=== PATIENT | female | born 1980 | race Caucasian/White ===

== ENCOUNTER 2016-04-28 20:57 | Emergency (ER) | payer OTHER ==
--- NOTE | 2016-04-28 21:51 | ER Document Report ---
ED Medical Screen (RME) - General Chief Complaint: High Blood Pressure Stated Complaint: BLOOD PRESSURE ISSUE W/ Time seen by provider: 21:49 Mode of Arrival: Ambulatory Information source: Patient Notes: 36 yo female presents to ed for elevated bp swollen ankles and pain in the right abdomen. She is 12 weeks . lmp feb 02 TRAVEL OUTSIDE OF THE [place] IN LAST 30 DAYS: No - HPI Onset: Other - couple day for abdominal pain, bp today, ankle swelling couple weeks. Onset/Duration: Gradual Quality of pain: Cramping Severity: Moderate Pain Level: 3 Associated Symptoms: Abdominal pain, Leg swelling, Other - Htn Exacerbated by: Denies Relieved by: Denies Similar symptoms previously: Yes Recently seen / treated by doctor: Yes - Related Data Smoking: Non-smoker Frequency of alcohol use: None Drug Abuse: None Allergies/Adverse Reactions: morphine [Morphine] Adverse Reaction (Verified 04/28/16 21:37) sumatriptan [From Imitrex] Adverse Reaction (Verified 04/28/16 21:37) sumatriptan succinate [From Imitrex] Adverse Reaction (Verified 04/28/16 21:37) Past Medical History - Social History Chew tobacco use (# tins/day): No Frequency of alcohol use: None Drug Abuse: None Neurological Medical History: Reports: Hx Migraine Endocrine Medical History: Reports: Hx Hypothyroidism Renal/ Medical History: Reports: Hx Ovarian Cysts Psychiatric Medical History: Reports: Hx Anxiety, Hx Depression Past Surgical History: Reports: Hx Cholecystectomy, Hx Gynecologic Surgery - R ovarian and fallopian tubes removed - Immunizations Hx Diphtheria, Pertussis, Tetanus Vaccination: Yes Physical Exam - Vital signs Vitals: Temp Pulse Resp BP Pulse Ox 98.5 F 95 20 124/85 100 04/28/16 21:37 04/28/16 21:37 04/28/16 21:37 04/28/16 21:37 04/28/16 21:37 Course - Vital Signs Vital signs: Temp Pulse Resp BP Pulse Ox 98.5 F 95 20 124/85 100 04/28/16 21:37 04/28/16 21:37 04/28/16 21:37 04/28/16 21:37 04/28/16 21:37
[2016-04-28 22:23] LABS: ABSOLUTE BASOPHILS # (AUTO) 0.1 10^3/uL (0.0-0.2); ABSOLUTE EOSINOPHILS # (AUTO) 0.1 10^3/uL (0.0-0.6); ABSOLUTE LYMPHOCYTES (AUTO) 2.3 10^3/uL (0.5-4.7); ABSOLUTE MONOCYTES (AUTO) 0.6 10^3/uL (0.1-1.4); ABSOLUTE NEUT (AUTO) 6.9 10^3/uL (1.7-8.2); BASOPHILS % (AUTO) 0.7 % (0-2); EOSINOPHILS % (AUTO) 0.8 % (0-6); HEMATOCRIT 40.9 % (36.0-47.0); HEMOGLOBIN 13.5 g/dL (12.0-15.5); HGB HCT DIFFERENCE -0.4; LYMPHOCYTES % (AUTO) 23.4 % (13-45); MEAN CORPUSCULAR HEMOGLOBIN 28.7 pg (27.0-33.4); MEAN CORPUSCULAR HGB CONC 33.1 g/dL (32.0-36.0); MEAN CORPUSCULAR VOLUME 87 fl (80-97); MONOCYTES % (AUTO) 5.7 % (3-13); RED BLOOD COUNT 4.72 10^6/uL (3.72-5.28); RED CELL DISTRIBUTION WIDTH 12.4 % (11.5-14.0); SEGMENTED NEUTROPHILS % (AUTO) 69.4 % (42-78)
[2016-04-28 22:24] LABS: APPEARANCE,URINE CLEAR; BILIRUBIN,URINE NEGATIVE (NEGATIVE); GLUCOSE, URINE NEGATIVE (NEGATIVE); KETONES,URINE NEGATIVE (NEGATIVE); LEUKOCYTE ESTERASE,URINE NEGATIVE (NEGATIVE); NITRITE,URINE NEGATIVE (NEGATIVE); PROTEIN,URINE NEGATIVE (NEGATIVE); URINE SPECIFIC GRAVITY 1.006; UROBILINOGEN,URINE NEGATIVE mg/dL (<2.0)
[2016-04-28 22:37] LABS: ALANINE AMINOTRANSFERASE 55 U/L (9-52); ALBUMIN 4.2 g/dL (3.5-5.0); ALKALINE PHOSPHATASE 109 U/L (38-126); ANION GAP 12 (5-19); ASPARTATE AMINO TRANSFERASE 33 U/L (14-36); BILIRUBIN,TOTAL 0.5 mg/dL (0.2-1.3); BLOOD UREA NITROGEN 6 mg/dL (7-20); CALCIUM 9.5 mg/dL (8.4-10.2); CARBON DIOXIDE 22 mmol/L (22-30); CHLORIDE 103 mmol/L (98-107); CREATININE RESULT 0.71 mg/dL (0.52-1.25); GLUCOSE 99 mg/dL (75-110); POTASSIUM 4.5 mmol/L (3.6-5.0); SODIUM 137.4 mmol/L (137-145); TOTAL PROTEIN 7.1 g/dL (6.3-8.2)
--- NOTE | 2016-04-29 02:06 | ER Document Report ---
ED GI/ - General Chief Complaint: High Blood Pressure Stated Complaint: BLOOD PRESSURE ISSUE W/ Mode of Arrival: Ambulatory TRAVEL OUTSIDE OF THE [place] IN LAST 30 DAYS: No - Related Data Allergies/Adverse Reactions: morphine [Morphine] Adverse Reaction (Verified 04/28/16 21:37) sumatriptan [From Imitrex] Adverse Reaction (Verified 04/28/16 21:37) sumatriptan succinate [From Imitrex] Adverse Reaction (Verified 04/28/16 21:37) Past Medical History - General Information source: Patient - Social History Smoking Status: Never Smoker Chew tobacco use (# tins/day): No Frequency of alcohol use: None Drug Abuse: None Family History: Reviewed & Not Pertinent, Other - Mother has kidney stones Patient has suicidal ideation: No Patient has homicidal ideation: No Neurological Medical History: Reports: Hx Migraine Endocrine Medical History: Reports: Hx Hypothyroidism Renal/ Medical History: Reports: Hx Ovarian Cysts Psychiatric Medical History: Reports: Hx Anxiety, Hx Depression Past Surgical History: Reports: Hx Cholecystectomy, Hx Gynecologic Surgery - R ovarian and fallopian tubes removed - Immunizations Hx Diphtheria, Pertussis, Tetanus Vaccination: Yes Physical Exam - Vital signs Vitals: Temp Pulse Resp BP Pulse Ox 98.5 F 95 20 124/85 100 04/28/16 21:37 04/28/16 21:37 04/28/16 21:37 04/28/16 21:37 04/28/16 21:37 Course - Vital Signs Vital signs: Temp Pulse Resp BP Pulse Ox 98.5 F 95 20 124/85 100 04/28/16 21:37 04/28/16 21:37 04/28/16 21:37 04/28/16 21:37 04/28/16 21:37 - Laboratory Result Diagrams: 04/28/16 22:10 04/28/16 22:10 Laboratory results interpreted by me: 04/28/16 22:10 BUN 6 L ALT 55 H Beta HCG, Quant [id number] H Discharge - Discharge Clinical Impression: Condition: Stable Disposition: HOME, SELF-CARE Instructions: ([facility]) Referrals: [facility] [Provider Group] - Follow up as needed
--- NOTE | 2016-04-29 02:19 | ER Document Report ---
ED General - General Mode of Arrival: Ambulatory Information source: Patient TRAVEL OUTSIDE OF THE [place] IN LAST 30 DAYS: No - HPI Onset: Other - see narrative Associated symptoms: Other - see above Similar symptoms previously: No <ROBBIE STONE - Last Filed: 04/29/16 02:49> <EDDI SILVA - Last Filed: 04/29/16 05:23> - General Chief Complaint: High Blood Pressure Stated Complaint: BLOOD PRESSURE ISSUE W/ Notes: Patient is a 36 year old female that presents to the emergency department today with complaints of shortness of breath, a headache, and bilateral leg swelling. Patient states that she is 12 weeks and was told her blood pressure of 126/90 was "too high" and she was sent to the ER. Patient states she has had symmetric bilateral leg swelling with no calf tenderness. Patient denies a personal history or family history of blood clots. (ROBBIE STONE) - Related Data Allergies/Adverse Reactions: morphine [Morphine] Adverse Reaction (Verified 04/28/16 21:37) sumatriptan [From Imitrex] Adverse Reaction (Verified 04/28/16 21:37) sumatriptan succinate [From Imitrex] Adverse Reaction (Verified 04/28/16 21:37) Past Medical History - General Information source: Patient, [facility] Records - Social History Smoking Status: Never Smoker Cigarette use (# per day): No Chew tobacco use (# tins/day): No Frequency of alcohol use: None Drug Abuse: None Lives with: Family Family History: Reviewed & Not Pertinent, Other - Mother has kidney stones Patient has suicidal ideation: No Patient has homicidal ideation: No Neurological Medical History: Reports: Hx Migraine Endocrine Medical History: Reports: Hx Hypothyroidism Renal/ Medical History: Reports: Hx Ovarian Cysts Psychiatric Medical History: Reports: Hx Anxiety, Hx Depression Past Surgical History: Reports: Hx Cholecystectomy, Hx Gynecologic Surgery - R ovarian and fallopian tubes removed - Immunizations Hx Diphtheria, Pertussis, Tetanus Vaccination: Yes <ROBBIE STONE - Last Filed: 04/29/16 02:49> Review of Systems - Review of Systems Constitutional: No symptoms reported EENT: No symptoms reported Cardiovascular: No symptoms reported Respiratory: See HPI, Short of breath Gastrointestinal: No symptoms reported Genitourinary: No symptoms reported Female Genitourinary: See HPI, Musculoskeletal: See HPI, Leg swelling - bilateral Skin: No symptoms reported Hematologic/Lymphatic: No symptoms reported Neurological/Psychological: See HPI, Headaches -: Yes All other systems reviewed and negative <ROBBIE STONE - Last Filed: 04/29/16 02:49> Physical Exam <ROBBIE STONE - Last Filed: 04/29/16 02:49> <EDDI SILVA - Last Filed: 04/29/16 05:23> - Vital signs Vitals: Temp Pulse Resp BP Pulse Ox 98.5 F 95 20 124/85 100 04/28/16 21:37 04/28/16 21:37 04/28/16 21:37 04/28/16 21:37 04/28/16 21:37 (ROBBIE STONE) (EDDI SILVA) - Notes Notes: Physical Exam: General: Alert, appears well. HEENT: Normocephalic. Atraumatic. PERRL. Extraocular movements intact. Oropharynx clear. Neck: Supple. Non-tender. Respiratory: No respiratory distress. Clear and equal breath sounds bilaterally. Cardiovascular: Regular rate and rhythm. Abdominal: Normal Inspection. Non-tender. No distension. Normal Bowel Sounds. Back: Non-tender. No deformity or step off. Extremities: Moves all four extremities. Upper extremities: Normal inspection. Non-tender. Normal color. Normal ROM. Normal temperature. Lower extremities: Trace pedal edema bilaterally, calves are symmetric in size and non-tender. Negative Jackeline's sign. Neurological: Normal cognition. AAOx4. Normal speech. Psychological: Normal affect. Normal Mood. Skin: Warm. Dry. Normal color. (ROBBIE STONE) Course - Laboratory Result Diagrams: 04/28/16 22:10 04/28/16 22:10 <ROBBIE STONE - Last Filed: 04/29/16 02:49> - Laboratory Result Diagrams: 04/28/16 22:10 04/28/16 22:10 - Diagnostic Test Radiology reviewed: Reports reviewed <EDDI SILVA - Last Filed: 04/29/16 05:23> - Re-evaluation Re-evalutation: 04/29/16 Patient is . Otherwise appears well. Trace pitting edema bilateral extremities. Patient has ultrasound shows that she is 12 weeks . Patient gets winded. Discussed d-dimer. We'll drop the patient does not want to wait for results. We'll call if it is positive. Patient has a follow-up with [facility] this week. Only came in because she was told to by urgent care. Stable for discharge. 04/29/16 05:22 D-dimer negative. (EDDI SILVA) - Vital Signs Vital signs: Temp Pulse Resp BP Pulse Ox 98.6 F 82 18 117/41 L 97 04/29/16 02:50 04/29/16 02:50 04/29/16 02:50 04/29/16 02:50 04/29/16 02:50 (ROBBIE STONE) (EDDI SILVA) - Laboratory Laboratory results interpreted by ar: 04/28/16 22:10 BUN 6 L ALT 55 H Beta HCG, Quant [id number] H (ROBBIE STONE) (EDDI SILVA) Discharge <ROBBIE STONE - Last Filed: 04/29/16 02:49> <EDDI SILVA - Last Filed: 04/29/16 05:23> - Discharge Clinical Impression: Qualifiers: Weeks of gestation: 12 weeks Qualified Code(s): Z3A.12 - 12 weeks gestation of Condition: Stable Disposition: HOME, SELF-CARE Instructions: ([facility]) Referrals: [facility] [Provider Group] - Follow up as needed Scribe Attestation: 04/29/16 05:23 I personally performed the services described in the documentation, reviewed and edited the documentation which was dictated to the scribe in my presence, and it accurately records my words and actions. (EDDI SILVA) Scribe Documentation - Scribe Written by Jayshree:: Jayshree Navarro, [id number] 04/29/2016 acting as scribe for :: Laura <ROBBIE STONE - Last Filed: 04/29/16 02:49>
[2016-04-29] MEDS ORDERED: ONDANSETRON ODT 4 MG TAB (6 TAB/DSPK) PO PRN (02:35)
[2016-04-29] MEDS ORDERED: METOCLOPRAMIDE HCL 10 MG TABLET PO ONE (02:35)
[2016-04-29 05:08] VITALS: BP 117/41
== END 2016-04-29 02:50 | disposition home or self-care (01) ==
LOC: ER 20:57
DX: R06.02 Shortness of breath (principal); R51 Headache; M79.89 Other specified soft tissue disorders; O13.1 Gestational [pregnancy-induced] hypertension without significant proteinuria, first trimester; Z3A.12 12 weeks gestation of pregnancy
CPT/HCPCS: 36415; 76801; 80053; 81001; 84702; 85025; 85379; 99284

== ENCOUNTER → 2017-05-19 | Outpatient (CLI) | payer OTHER ==
--- NOTE | 2017-05-19 14:46 | RADIOLOGY REPORT (SQ) ---
EXAM DESCRIPTION: U/S NON-OB PELVIS TV W/O DOP COMPLETED DATE/TIME: 05/19/2017 2:37 pm REASON FOR STUDY: LOWER ABD PAIN ,UNSPEC (R10.30) R10.30 LOWER ABDOMINAL PAIN, UNSPECIFIED COMPARISON: 12/26/2015. TECHNIQUE: Dynamic and static grayscale images acquired of the pelvis via transvaginal approach and recorded on PACS. Additional selected color Doppler and spectral images recorded. LIMITATIONS: None. FINDINGS: UTERUS: Contour normal. No mass. ENDOMETRIAL STRIPE: No focal or generalized thickening. No masses. CERVIX: Small nabothian cysts. RIGHT OVARY: Surgically absent. LEFT OVARY: No abnormal masses. LEFT OVARY DOPPLER: Normal arterial vascular flow without evidence for torsion. FREE FLUID: None noted. OTHER: No other significant finding. MEASUREMENTS: UTERUS: 4.0 x 5.1 x 7.9 cm. ENDOMETRIAL STRIPE: 14 mm. RIGHT OVARY: Surgically absent. LEFT OVARY: 1.5 x 1.9 x 2.0 cm. IMPRESSION: NORMAL TRANSVAGINAL PELVIC ULTRASOUND. TECHNICAL DOCUMENTATION: JOB ID: [id number]- All Rights Reserved
== END ==
LOC: RAD 13:40
PROVIDERS: ATTEND Nurse Practitioner Family
DX: R10.30 Lower abdominal pain, unspecified (principal)
CPT/HCPCS: 76830

== ENCOUNTER → 2017-07-05 | Outpatient (CLI) | payer OTHER ==
[2017-07-05 19:33] LABS: ABSOLUTE BASOPHILS # (AUTO) 0.1 10^3/uL (0.0-0.2); ABSOLUTE EOSINOPHILS # (AUTO) 0.1 10^3/uL (0.0-0.6); ABSOLUTE LYMPHOCYTES (AUTO) 1.8 10^3/uL (0.5-4.7); ABSOLUTE MONOCYTES (AUTO) 0.6 10^3/uL (0.1-1.4); ABSOLUTE NEUT (AUTO) 5.3 10^3/uL (1.7-8.2); BASOPHILS % (AUTO) 0.6 % (0-2); EOSINOPHILS % (AUTO) 1.1 % (0-6); HEMATOCRIT 39.6 % (36.0-47.0); LYMPHOCYTES % (AUTO) 23.6 % (13-45); MEAN CORPUSCULAR HEMOGLOBIN 27.2 pg (27.0-33.4); MEAN CORPUSCULAR HGB CONC 32.8 g/dL (32.0-36.0); MEAN CORPUSCULAR VOLUME 83 fl (80-97); MONOCYTES % (AUTO) 7.4 % (3-13); PLATELET COUNT 268 10^3/uL (150-450); RED BLOOD COUNT 4.77 10^6/uL (3.72-5.28); RED CELL DISTRIBUTION WIDTH 12.8 % (11.5-14.0); SEGMENTED NEUTROPHILS % (AUTO) 67.3 % (42-78); TOTAL CELLS COUNTED % (AUTO) 100 %; WHITE BLOOD COUNT 7.8 10^3/uL (4.0-10.5)
[2017-07-05 19:54] LABS: ALANINE AMINOTRANSFERASE 46 U/L (9-52); ALKALINE PHOSPHATASE 114 U/L (38-126); ANION GAP 8 (5-19); ASPARTATE AMINO TRANSFERASE 20 U/L (14-36); BILIRUBIN,DIRECT 0.4 mg/dL (0.0-0.4); BILIRUBIN,TOTAL 0.4 mg/dL (0.2-1.3); BLOOD UREA NITROGEN 9 mg/dL (7-20); C-REACTIVE PROTEIN 17.6 mg/L (<10.0); CALCIUM 9.1 mg/dL (8.4-10.2); CARBON DIOXIDE 26 mmol/L (22-30); CHLORIDE 103 mmol/L (98-107); GLUCOSE 91 mg/dL (75-110); POTASSIUM 4.3 mmol/L (3.6-5.0); SODIUM 137.1 mmol/L (137-145); TOTAL PROTEIN 7.1 g/dL (6.3-8.2)
[2017-07-05 20:08] LABS: ERYTHROCYTE SEDIMENTATION RATE 42 mm/hr (0-20)
[2017-07-07 11:42] LABS: ANTINUCLEAR ANTIBODIES Negative (Negative)
[2017-07-08 09:12] LABS: CYCLIC CITRUL PEPTIDE IGG/A AB 7 units (0-19)
== END ==
LOC: LAB 18:47
PROVIDERS: ATTEND Family Medicine
DX: R50.9 Fever, unspecified (principal)
CPT/HCPCS: 36415; 80053; 85025; 85652; 86038; 86140; 86200; 86431; 87040

== ENCOUNTER 2017-07-28 11:26 | Emergency (ER) | payer OTHER ==
[2017-07-28] MEDS ORDERED: NORMAL SALINE 1000 ML 1,000 ML IV ONE (11:57)
--- NOTE | 2017-07-28 12:01 | ER Document Report ---
ED Medical Screen (RME) - General Chief Complaint: Fever Stated Complaint: FEVER, LEFT KNEE PAIN, SWELLING Time Seen by Provider: 07/28/17 11:57 Notes: RME DISCLOSURE I have seen this patient as part of a Rapid Medical Evaluation and, if applicable, placed any initially appropriate orders. The patient will be seen and fully evaluated, including a full history and physical exam, by a provider ( in Main ED or Fast Track) when a room becomes available. 37-year-old female here with complaints of midsternal chest heaviness "like an elephant on my chest" as of breath that has been ongoing for the past few days. States that yesterday she started to experience sinus pressure congestion runny nose sore throat but is not sure if the chest pressure and shortness of breath is related. She also complains of left knee pain that has been ongoing for many months now and that "my doctor has done so many tests all my knee". She states that whenever she gets fevers, her knee starts to hurt more. She does not have any redness or swelling to the knee. EXAM No increased left knee pain with passive range of motion Tachycardic TRAVEL OUTSIDE OF THE [place] IN LAST 30 DAYS: No - Related Data Allergies/Adverse Reactions: morphine [Morphine] Adverse Reaction (Verified 07/28/17 11:32) sumatriptan [From Imitrex] Adverse Reaction (Verified 07/28/17 11:32) sumatriptan succinate [From Imitrex] Adverse Reaction (Verified 07/28/17 11:32) Past Medical History - Social History Chew tobacco use (# tins/day): No Frequency of alcohol use: None Drug Abuse: None Neurological Medical History: Reports: Hx Migraine Endocrine Medical History: Reports: Hx Hypothyroidism Renal/ Medical History: Reports: Hx Ovarian Cysts. Denies: Hx Peritoneal Dialysis Psychiatric Medical History: Reports: Hx Anxiety, Hx Depression Past Surgical History: Reports: Hx Cholecystectomy, Hx Gynecologic Surgery - R ovarian and fallopian tubes removed - Immunizations Hx Diphtheria, Pertussis, Tetanus Vaccination: Yes Physical Exam - Vital signs Vitals: Temp Pulse Resp BP Pulse Ox 98.0 F 105 H 18 134/92 H 100 07/28/17 11:34 07/28/17 11:34 07/28/17 11:34 07/28/17 11:34 07/28/17 11:34 Course - Vital Signs Vital signs: Temp Pulse Resp BP Pulse Ox 98.0 F 105 H 18 134/92 H 100 07/28/17 11:34 07/28/17 11:34 07/28/17 11:34 07/28/17 11:34 07/28/17 11:34
--- NOTE | 2017-07-28 12:48 | RADIOLOGY REPORT (SQ) ---
EXAM DESCRIPTION: CHEST 2 VIEWS COMPLETED DATE/TIME: 07/28/2017 12:41 pm REASON FOR STUDY: CP SOB COMPARISON: 09/18/2014 EXAM PARAMETERS: NUMBER OF VIEWS: two views TECHNIQUE: Digital Frontal and Lateral radiographic views of the chest acquired. RADIATION DOSE: NA LIMITATIONS: none FINDINGS: LUNGS AND PLEURA: No opacities, masses or pneumothorax. No pleural effusion. MEDIASTINUM AND HILAR STRUCTURES: No masses or contour abnormalities. HEART AND VASCULAR STRUCTURES: Heart normal size. No evidence for failure. BONES: No acute findings. HARDWARE: Cholecystectomy clips. OTHER: No other significant finding. IMPRESSION: NO ACUTE RADIOGRAPHIC FINDING IN THE CHEST. TECHNICAL DOCUMENTATION: JOB ID: [id number]- All Rights Reserved Reading location - IP/workstation name: [email or web address]
--- NOTE | 2017-07-28 12:55 | ER Document Report ---
ED General - General Chief Complaint: Fever Stated Complaint: FEVER, LEFT KNEE PAIN, SWELLING Time Seen by Provider: 07/28/17 11:57 Notes: Patient is here because she is having some sharp pains in the lateral aspect of her left knee this morning and she noted she had some fever of 101.2 last night. Patient has been having problems with her knee for over a month now. She has had some lesser pains in the right knee. About a month ago she also had some fevers associated with the pains. Saw her doctor who ordered a bunch of lab work and told her that she might have some connective tissue disorder and has referred her to a communications officer for an appointment on the of this month. Her primary care provider, gave her a 10 day course of low-dose prednisone, but when she went back for recheck, her knee was no better and so he put her on a decreasing prednisone pack starting at 60 mg a day and decreasing by 10 mg a day after that. Her symptoms improved, but she finished taking the prednisone yesterday and now her symptoms have returned last night. She does not note any swelling of the knee. No erythema or heat there. Patient also says that she is experiencing some tightness in the front of her chest for the past couple of days. TRAVEL OUTSIDE OF THE [place] IN LAST 30 DAYS: No - Related Data Allergies/Adverse Reactions: morphine [Morphine] Adverse Reaction (Verified 07/28/17 11:32) sumatriptan [From Imitrex] Adverse Reaction (Verified 07/28/17 11:32) sumatriptan succinate [From Imitrex] Adverse Reaction (Verified 07/28/17 11:32) Past Medical History - Social History Smoking Status: Never Smoker Chew tobacco use (# tins/day): No Frequency of alcohol use: None Drug Abuse: None Family History: Reviewed & Not Pertinent, Other - Mother has kidney stones Patient has suicidal ideation: No Patient has homicidal ideation: No Neurological Medical History: Reports: Hx Migraine Endocrine Medical History: Reports: Hx Hypothyroidism - Maria Esther's Renal/ Medical History: Reports: Hx Ovarian Cysts Psychiatric Medical History: Reports: Hx Anxiety, Hx Depression Past Surgical History: Reports: Hx Cholecystectomy, Hx Gynecologic Surgery - R ovarian and fallopian tubes removed - Immunizations Hx Diphtheria, Pertussis, Tetanus Vaccination: Yes Review of Systems - Review of Systems Notes: REVIEW OF SYSTEMS: CONSTITUTIONAL : Fevers intermittently. EENT: Denies eye, ear, nose or mouth or throat pain or other symptoms. CARDIOVASCULAR: Nonspecific anterior chest "tightness", intermittently for the past couple of days. RESPIRATORY: Denies cough, chest congestion, or shortness of breath. GASTROINTESTINAL: Denies abdominal pain or nausea, vomiting, or diarrhea. GENITOURINARY: Denies difficulty or painful urinating, urinary frequency, blood in urine. MUSCULOSKELETAL: Denies back or neck pain. Denies joint swelling and only complains of pain of the lateral aspect of the left knee. Negative Homans bilaterally. SKIN: Denies rash or skin lesions. NEUROLOGICAL: Denies LOC or altered mental status. Denies headache. Denies sensory loss or motor deficits. ALL OTHER SYSTEMS REVIEWED AND NEGATIVE. Physical Exam - Vital signs Vitals: Temp Pulse Resp BP Pulse Ox 98.0 F 105 H 18 134/92 H 100 07/28/17 11:34 07/28/17 11:34 07/28/17 11:34 07/28/17 11:34 07/28/17 11:34 Interpretation: Normal - Notes Notes: PHYSICAL EXAMINATION: GENERAL: Well-appearing, in no acute distress. HEAD: Atraumatic, normocephalic. NECK: Normal range of motion, supple. LUNGS: Breath sounds clear and equal bilaterally. HEART: Regular rate and rhythm without murmurs. ABDOMEN: Soft, nontender. No guarding or rebound. No masses. BACK: No tenderness throughout entire back. EXTREMITIES: Normal range of motion without pain. Only has pain of the lateral aspect of the left knee, over the side of the left patella. It is tender to press there and is tender to stress there. She has no weakness of any of the 4 major ligaments of either knee. No swelling, erythema, heat, etc. noted in that knee. No effusion present. NEUROLOGICAL: Normal speech, slightly limping gait. Normal sensory, motor, and reflex exams. Awake, alert, and oriented x3. Cranial nerves normal. PSYCH: Normal mood, normal affect. SKIN: Warm, dry, no rashes. Course - Vital Signs Vital signs: Temp Pulse Resp BP Pulse Ox 98.9 F 93 18 126/75 H 100 07/28/17 14:27 07/28/17 14:27 07/28/17 14:27 07/28/17 14:27 07/28/17 14:27 - Laboratory Result Diagrams: 07/28/17 12:56 07/28/17 12:56 Laboratory results interpreted by me: 07/28/17 12:56 RDW 14.1 H ESR 26 H Discharge - Discharge Clinical Impression: Left knee pain, Chest pain, non-cardiac, Fever Condition: Stable Disposition: HOME, SELF-CARE Additional Instructions: Left Knee Pain Fever Fever is the body's reaction to infection. Fever can also occur with illnesses that create fever-producing substances in the body. By itself, fever is not harmful. It helps the body fight invading germs. We are more concerned with: (1) What's causing the fever? (2) How can we keep you more comfortable until the fever goes away? Early in an illness, symptoms are often so vague that a diagnosis can't be made. If the doctor hasn't identified a clear cause for your fever, you will probably develop new symptoms within the next two days. Contact the doctor if you develop severe worsening headache, rash, chest pain, cough with yellow or green sputum, difficulty breathing, abdominal pain, or other new symptoms. There is no reason to treat a fever if you're comfortable. If the fever is causing aches, headache, and fatigue, you can treat it with ibuprofen (Advil , Nuprin, etc) or acetaminophen (Tylenol). Follow the directions on the bottle. Get plenty of liquids (three quarts per day). Rest. Physical work or sports will raise the temperature higher and make you feel much worse. Dress lightly. If you're chilling, this means the temperature is trying to go higher. Take ibuprofen or acetaminophen. When you feel sweaty and "feverish" the temperature is coming down. If the fever doesn't go away within two days or if you become more ill, call the doctor or return at once for re-examination. We were not able to determine the actual cause for your knee pain or fever. NORMAL EXAM AND WORKUP: At this time, your examination and workup show no significant abnormality. No significant abnormal physical findings were noted. All laboratory, EKG, and imaging (x-ray, CT scans, ultrasound) studies that were ordered show no significant abnormality. Although your examination and all studies that were ordered showed no significant abnormal finding, there are no examinations and no studies that are 100% accurate. There is always the possibility that some abnormality could exist and not be detected with physical examination or within the limits and capabilities of laboratory and other studies. You should return or follow up as you were instructed on your visit today for further evaluation if your symptoms do not resolve. Ice Packs Apply ice packs frequently against the painful area. Many different schedules are recommended, such as "20 minutes on, 20 minutes off" or "one hour ice, two hours rest." If you need to work, you may need to go longer between ice treatments. You should plan to have the area ice packed AT LEAST one fourth of the time. The ice should be applied over the wrap, tape, or splint, or over a layer of cloth -- not directly against the skin. Some ice bags have a built-in cloth and can be put directly on the skin. Ibuprofen Ibuprofen is an excellent, safe drug for pain control. In addition, it has potent antiinflammatory effects which are beneficial, especially in the treatment of injuries, arthritis, or tendonitis. It's best to take ibuprofen with food. Persons with ulcer disease or allergy to aspirin should notify their physician of this before taking ibuprofen. Take the medication exactly as prescribed. Don't take additional doses unless instructed to do so by your doctor. If you develop wheezing, shortness of breath, hives, faintness, stomach pain, vomiting, or dark black stools, return for re-evaluation at once. USE OF ACETAMINOPHEN (Tylenol): Acetaminophen may be taken for pain relief or fever control. It's much safer than aspirin, offering a wider range of "safe" dosages. It is safe during . Some brand names are Tylenol, Panadol, Datril, Anacin 3, Tempra, and Liquiprin. Acetaminophen can be repeated every four hours. The following are maximum recommended dosages: WEIGHT Dose Drops Elixir Chewable( 80mg) (LBS.) drprs=droppers tsp=teaspoon >89 pounds or adults 650 mg to 900 mg Acetaminophen can be repeated every four hours. Maximum dose not to exceed 4000 mg a day. These maximum recommended dosages are slightly higher than the dosages written on the product container, but these dosages are very safe and below the toxic dosage for acetaminophen. Keep your appointment to see your communications officer later this month. Follow-up with your primary care physician as needed. FOLLOW-UP CARE: If you have been referred to a physician for follow-up care, call the physician s office for an appointment as you were instructed or within the next two days. If you experience worsening or a significant change in your symptoms, notify the physician immediately or return to the Emergency Department at any time for re-evaluation.
[2017-07-28] MEDS ORDERED: ONDANSETRON HCL INJ/PF 4 MG/2 ML SDV IV ONE (12:56)
[2017-07-28 13:08] LABS: ABSOLUTE BASOPHILS # (AUTO) 0.1 10^3/uL (0.0-0.2); ABSOLUTE EOSINOPHILS # (AUTO) 0.1 10^3/uL (0.0-0.6); ABSOLUTE LYMPHOCYTES (AUTO) 2.1 10^3/uL (0.5-4.7); ABSOLUTE MONOCYTES (AUTO) 0.8 10^3/uL (0.1-1.4); ABSOLUTE NEUT (AUTO) 5.4 10^3/uL (1.7-8.2); EOSINOPHILS % (AUTO) 1.3 % (0-6); HEMATOCRIT 41.4 % (36.0-47.0); HEMOGLOBIN 13.5 g/dL (12.0-15.5); LYMPHOCYTES % (AUTO) 24.4 % (13-45); MEAN CORPUSCULAR HEMOGLOBIN 27.3 pg (27.0-33.4); MEAN CORPUSCULAR HGB CONC 32.7 g/dL (32.0-36.0); MEAN CORPUSCULAR VOLUME 84 fl (80-97); PLATELET COUNT 240 10^3/uL (150-450); RED BLOOD COUNT 4.95 10^6/uL (3.72-5.28); RED CELL DISTRIBUTION WIDTH 14.1 % (11.5-14.0); SEGMENTED NEUTROPHILS % (AUTO) 63.3 % (42-78); TOTAL CELLS COUNTED % (AUTO) 100 %; WHITE BLOOD COUNT 8.5 10^3/uL (4.0-10.5)
[2017-07-28 13:48] LABS: ERYTHROCYTE SEDIMENTATION RATE 26 mm/hr (0-20)
[2017-07-28 13:51] LABS: ANION GAP 9 (5-19); BLOOD UREA NITROGEN 12 mg/dL (7-20); CALCIUM 8.9 mg/dL (8.4-10.2); CARBON DIOXIDE 27 mmol/L (22-30); CHLORIDE 106 mmol/L (98-107); GLUCOSE 79 mg/dL (75-110); POTASSIUM 4.1 mmol/L (3.6-5.0); SODIUM 141.6 mmol/L (137-145); URIC ACID 4.9 mg/dL (2.5-7.0)
[2017-07-28 14:46] VITALS: BP 126/75
--- NOTE | 2017-07-28 21:01 | EKG REPORT ---
SEVERITY:- BORDERLINE ECG - SINUS RHYTHM LVH BY VOLTAGE : Confirmed by: Jet Doshi 28-Jul-2017 21:01:23
== END 2017-07-28 14:46 | disposition home or self-care (01) ==
LOC: ER 11:26
DX: R50.9 Fever, unspecified (principal); R07.89 Other chest pain; M25.562 Pain in left knee; Z90.49 Acquired absence of other specified parts of digestive tract; Z88.6 Allergy status to analgesic agent
CPT/HCPCS: 93005; 99284; 96374; 36415; 84550; 85025; 85652; 86430; 80048; 84484; 71046; 93010; J2405

== ENCOUNTER 2018-04-27 20:31 | Emergency (ER) | payer OTHER ==
[2018-04-27 20:59] VITALS: BP 141/85
== END 2018-04-27 23:17 | disposition left against medical advice (07) ==
LOC: ER 20:31
DX: Z53.21 Procedure and treatment not carried out due to patient leaving prior to being seen by health care provider (principal)

== ENCOUNTER 2018-04-28 14:28 | Emergency (ER) | payer OTHER ==
--- NOTE | 2018-04-28 15:36 | ER Document Report ---
ED Medical Screen (RME) - General Chief Complaint: High Blood Pressure Stated Complaint: HIGH BLOOD PRESSURE/HEADACHE Time Seen by Provider: 04/28/18 15:22 Mode of Arrival: Ambulatory Information source: Patient TRAVEL OUTSIDE OF THE [place] IN LAST 30 DAYS: No - HPI Patient complains to provider of: headache Onset: Other - Sent from primary physician for CAT scan of head for concern of high blood pressure and headache on the anniversary of her 's suicide a decade ago. She is been having high blood pressure for the last 2 days as well as a low-grade headache which prompted her primary care physician to send her here because of their concern. She denies any fevers chills neck stiffness abdominal pain diarrhea constipation or dysuria she does endorse some visual disturbances on occasion she is prescribed lenses but chooses not to wear them. - Related Data Allergies/Adverse Reactions: hydromorphone [From Dilaudid] Adverse Reaction (Verified 04/27/18 20:52) morphine [Morphine] Adverse Reaction (Verified 07/28/17 11:32) sumatriptan [From Imitrex] Adverse Reaction (Verified 07/28/17 11:32) sumatriptan succinate [From Imitrex] Adverse Reaction (Verified 07/28/17 11:32) Past Medical History - General Information source: Patient - Social History Cigarette use (# per day): No Chew tobacco use (# tins/day): No Frequency of alcohol use: None Drug Abuse: None Lives with: Family Neurological Medical History: Reports: Hx Migraine Endocrine Medical History: Reports: Hx Hypothyroidism - Maria Esther's Renal/ Medical History: Reports: Hx Ovarian Cysts. Denies: Hx Peritoneal Dialysis Psychiatric Medical History: Reports: Hx Anxiety, Hx Depression Past Surgical History: Reports: Hx Cholecystectomy, Hx Gynecologic Surgery - R ovarian and fallopian tubes removed - Immunizations Hx Diphtheria, Pertussis, Tetanus Vaccination: Yes Review of Systems - Review of Systems -: Yes All other systems reviewed and negative Physical Exam - Vital signs Vitals: Temp Pulse Resp BP Pulse Ox 97.7 F 87 16 138/87 H 98 04/28/18 14:32 04/28/18 14:32 04/28/18 14:32 04/28/18 14:32 04/28/18 14:32 Interpretation: Normal - General General appearance: Appears well, Alert - HEENT Head: Normocephalic, Atraumatic Eyes: Normal Pupils: PERRL - Respiratory Respiratory status: No respiratory distress Chest status: Nontender Breath sounds: Normal Chest palpation: Normal - Cardiovascular Rhythm: Regular Heart sounds: Normal auscultation Murmur: No - Abdominal Inspection: Normal Distension: No distension Bowel sounds: Normal Tenderness: Nontender Organomegaly: No organomegaly - Back Back: Normal, Nontender - Extremities General upper extremity: Normal inspection, Nontender, Normal color, Normal ROM, Normal temperature General lower extremity: Normal inspection, Nontender, Normal color, Normal ROM, Normal temperature, Normal weight bearing. No: Jackeline's sign - Neurological Neuro grossly intact: Yes Cognition: Normal Orientation: AAOx4 [place] Coma Scale Eye Opening: Spontaneous Karie Coma Scale Verbal: Oriented [place] Coma Scale Motor: Obeys Commands [place] Coma Scale Total: 15 Speech: Normal Motor strength normal: LUE, RUE, LLE, RLE Sensory: Normal - Psychological Associated symptoms: Normal affect, Normal mood - Skin Skin Temperature: Warm Skin Moisture: Dry Skin Color: Normal Course - Re-evaluation Re-evalutation: 04/28/18 20:08 This is an exceptionally well-appearing anxious 38-year-old female that presents for evaluation of needing CAT scan from her primary physician's office. She was noted to have elevated blood pressure of 140 systolic there which prompted the concern. She also complained of a brief visual disturbance she does have a long-standing history of headaches in the past which have responded to different medications though she is allergic to many. She did not take any of these medicines to try and help with this today. Will obtain CT head will administer Toradol as she says this is helped in the past. Following CT imaging of the head no acute intracranial process was identified believe there is an exceptionally low likelihood for ready serious intracranial pathology as such believe she is likely safe for discharge home with return precautions will give her a prescription for Fioricet for her headache. She was amenable neurologically intact and well-appearing at the time she was discharged. - Vital Signs Vital signs: Temp Pulse Resp BP Pulse Ox 97.7 F 93 18 138/88 H 100 04/28/18 14:32 04/28/18 16:49 04/28/18 16:49 04/28/18 16:49 04/28/18 16:49 Doctor's Discharge - Discharge Clinical Impression: Headache Qualifiers: Headache type: unspecified Headache chronicity pattern: unspecified pattern Intractability: not intractable Qualified Code(s): R51 - Headache Condition: Good Disposition: HOME, SELF-CARE Instructions: Headache ([facility]), Tension Headache ([facility]) Additional Instructions: You were seen today in the emergency department for your headache. You had evaluation including a CAT scan. Your CAT scan does not show a bleed or stroke in your head. It is possible that your headache is related to tension, it is very unlikely that her blood pressure is the cause of your headache. It is possible that your headache is causing her blood pressure to be elevated. I did give you a medication to help with your headache at home if it continues. If you use this medication you should not drive thereafter. Prescriptions: Butalb/Acetaminophen/Caffeine [Fioricet (50-325-40 mg) Tablet] 1 tab PO Q4HP PRN #30 tab PRN Reason: Referrals: SEAN MARKS MD [Primary Care Provider] - Follow up as needed
--- NOTE | 2018-04-28 16:24 | RADIOLOGY REPORT (SQ) ---
EXAM DESCRIPTION: CT HEAD WITHOUT COMPLETED DATE/TIME: 04/28/2018 4:08 pm REASON FOR STUDY: Headache COMPARISON: None. TECHNIQUE: Axial images acquired through the brain without intravenous contrast. Images reviewed wi th bone, brain and subdural windows. Additional sagittal and coronal reconstructions were generated. Images stored on PACS. All CT scanners at this facility use dose modulation, iterative reconstruction, and/or weight based d osing when appropriate to reduce radiation dose to as low as reasonably achievable (ALARA). [facility]: Dose Right [facility]: CareDose [facility]: Dose Right [facility]: Teradose 4D [facility]: [employer] RADIATION DOSE: CT Rad equipment meets quality standard of care and radiation dose reduction techniq ues were employed. CTDIvol: 53.2 mGy. DLP: 1044 mGy-cm. mGy. LIMITATIONS: None. FINDINGS: VENTRICLES: Normal size and contour. CEREBRUM: No masses. No hemorrhage. No midline shift. No evidence for acute infarction. Normal gra y/white matter differentiation. No areas of low density in the white matter. CEREBELLUM: No masses. No hemorrhage. No alteration of density. No evidence for acute infarction. EXTRAAXIAL SPACES: No fluid collections. No masses. ORBITS AND GLOBE: No intra- or extraconal masses. Normal contour of globe without masses. CALVARIUM: No fracture. PARANASAL SINUSES: No fluid or mucosal thickening. SOFT TISSUES: No mass or hematoma. OTHER: No other significant finding. IMPRESSION: No acute intracranial pathology. No noncontrast CT findings to explain headache. EVIDENCE OF ACUTE STROKE: NO. COMMENT: Quality ID # [id number]: Final reports with documentation of one or more dose reduction techniques (e.g., Automated exposure control, adjustment of the mA and/or kV according to patient size, use of iterative reconstruction technique) TECHNICAL DOCUMENTATION: JOB ID: [id number] [employer]- All Rights Reserved Reading location - IP/workstation name: [email or web address]
[2018-04-28] MEDS ORDERED: KETOROLAC TROMETHAMINE 60 MG/2 ML SDV IM ONE (16:37)
[2018-04-28 16:51] VITALS: BP 138/88
== END 2018-04-28 16:56 | disposition home or self-care (01) ==
LOC: ER 14:28
DX: R51 Headache (principal); I10 Essential (primary) hypertension; F41.9 Anxiety disorder, unspecified
CPT/HCPCS: 99284; 96372; 70450; J1885

== ENCOUNTER 2019-02-19 08:06 | Emergency (ER) | payer OTHER ==
[2019-02-19 09:17] LABS: ABSOLUTE EOSINOPHILS # (AUTO) 0.1 10^3/uL (0.0-0.6); ABSOLUTE LYMPHOCYTES (AUTO) 1.6 10^3/uL (0.5-4.7); ABSOLUTE MONOCYTES (AUTO) 0.6 10^3/uL (0.1-1.4); ABSOLUTE NEUT (AUTO) 4.3 10^3/uL (1.7-8.2); BASOPHILS % (AUTO) 0.7 % (0-2); EOSINOPHILS % (AUTO) 1.5 % (0-6); HEMATOCRIT 37.1 % (36.0-47.0); LYMPHOCYTES % (AUTO) 24.3 % (13-45); MEAN CORPUSCULAR HEMOGLOBIN 27.8 pg (27.0-33.4); MEAN CORPUSCULAR HGB CONC 32.5 g/dL (32.0-36.0); MEAN CORPUSCULAR VOLUME 86 fl (80-97); MONOCYTES % (AUTO) 8.4 % (3-13); PLATELET COUNT 261 10^3/uL (150-450); RED BLOOD COUNT 4.34 10^6/uL (3.72-5.28); RED CELL DISTRIBUTION WIDTH 13.3 % (11.5-14.0); SEGMENTED NEUTROPHILS % (AUTO) 65.1 % (42-78); TOTAL CELLS COUNTED % (AUTO) 100 %; WHITE BLOOD COUNT 6.7 10^3/uL (4.0-10.5)
[2019-02-19 09:18] LABS: APPEARANCE,URINE CLEAR; BILIRUBIN,URINE NEGATIVE (NEGATIVE); COLOR,URINE STRAW; GLUCOSE, URINE NEGATIVE (NEGATIVE); KETONES,URINE NEGATIVE (NEGATIVE); LEUKOCYTE ESTERASE,URINE NEGATIVE (NEGATIVE); NITRITE,URINE NEGATIVE (NEGATIVE); PROTEIN,URINE NEGATIVE (NEGATIVE); UROBILINOGEN,URINE NEGATIVE mg/dL (<2.0)
[2019-02-19 09:19] LABS: URINE SPECIFIC GRAVITY 1.017
[2019-02-19 09:20] LABS: ALBUMIN 3.9 g/dL (3.5-5.0); ALKALINE PHOSPHATASE 100 U/L (38-126); ANION GAP 7 (5-19); ASPARTATE AMINO TRANSFERASE 25 U/L (14-36); BILIRUBIN,DIRECT 0.1 mg/dL (0.0-0.4); BILIRUBIN,TOTAL 0.5 mg/dL (0.2-1.3); BLOOD UREA NITROGEN 10 mg/dL (7-20); CALCIUM 8.9 mg/dL (8.4-10.2); CARBON DIOXIDE 27 mmol/L (22-30); CHLORIDE 104 mmol/L (98-107); GLUCOSE 88 mg/dL (75-110); POTASSIUM 4.7 mmol/L (3.6-5.0); TOTAL PROTEIN 7.1 g/dL (6.3-8.2)
[2019-02-19] MEDS ORDERED: KETOROLAC TROMETHAMINE INJ/PF 30 MG/1 ML SDV IV ONE (09:44)
[2019-02-19] MEDS ORDERED: ONDANSETRON HCL INJ/PF 4 MG/2 ML SDV IV ONE (09:44)
--- NOTE | 2019-02-19 10:22 | RADIOLOGY REPORT (SQ) ---
EXAM DESCRIPTION: CT ABD/PELVIS NO ORAL OR IV COMPLETED DATE/TIME: 02/19/2019 10:05 am REASON FOR STUDY: rlq pain COMPARISON: 03/11/2014 TECHNIQUE: CT scan of the abdomen and pelvis performed without intravenous or oral contrast. Images reviewed with lung, soft tissue, and bone windows. Reconstructed coronal and sagittal MPR images revi ewed. All images stored on PACS. All CT scanners at this facility use dose modulation, iterative reconstruction, and/or weight based d osing when appropriate to reduce radiation dose to as low as reasonably achievable (ALARA). [facility]: Dose Right [facility]: CareDose [facility]: Dose Right [facility]: Teradose 4D [facility]: [employer] RADIATION DOSE: CT Rad equipment meets quality standard of care and radiation dose reduction techniq ues were employed. CTDIvol: 16.0 mGy. DLP: 859 mGy-cm.mGy. LIMITATIONS: None. FINDINGS: LOWER CHEST: No significant findings. No nodules or infiltrates. NON-CONTRASTED LIVER, SPLEEN, ADRENALS: Evaluation limited by lack of IV contrast. Hepatic steatosis . No identified significant masses. PANCREAS: No masses. No peripancreatic inflammatory changes. GALLBLADDER: Surgically absent. RIGHT KIDNEY AND URETER: No suspicious masses. Assessment limited by lack of IV contrast. No signif icant calcifications. No hydronephrosis or hydroureter. LEFT KIDNEY AND URETER: No suspicious masses. Assessment limited by lack of IV contrast. No signifi cant calcifications. No hydronephrosis or hydroureter. AORTA AND RETROPERITONEUM: No aneurysm. No retroperitoneal masses or adenopathy. BOWEL AND PERITONEAL CAVITY: There is fatty mural stratification of the terminal ileum and cecum. Th ere are no acute inflammatory findings. No free fluid. APPENDIX: Normal. PELVIS, BLADDER, AND ABDOMINAL WALL:No abnormal masses. No free fluid. Bladder normal. BONES: No significant findings. OTHER: No other significant finding. IMPRESSION: 1. There is fatty mural stratification of the terminal ileum and cecum. There are no ac mcgrath inflammatory findings. Findings are consistent with chronic or ongoing nonspecific colitis, incl uding inflammatory bowel disease such as Crohn's. Correlate with referable clinical history if prese nt. 2. Normal appendix. 3. Hepatic steatosis. COMMENT: Quality ID # [id number]: Final reports with documentation of one or more dose reduction techniques (e.g., Automated exposure control, adjustment of the mA and/or kV according to patient size, use of iterative reconstruction technique) TECHNICAL DOCUMENTATION: JOB ID: [id number] [employer]- All Rights Reserved Reading location - IP/workstation name: [email or web address]
--- NOTE | 2019-02-19 10:51 | ER Document Report ---
ED General - General Chief Complaint: Abdominal Pain Stated Complaint: ABDOMINAL CRAMPS Time Seen by Provider: 02/19/19 09:10 Primary Care Provider: SEAN MARKS MD [Primary Care Provider] - Follow up as needed Mode of Arrival: Ambulatory Information source: Patient TRAVEL OUTSIDE OF THE [place] IN LAST 30 DAYS: No - HPI Notes: Patient presents with lower abdominal pain. She states it is bilateral lower quadrants but greatest on the right. She states it is sharp and intermittent. Moderate in intensity. Nothing makes it better or worse. It does radiate across the lower abdomen into the low back. She states she has had a slight increase in vaginal discharge which she is not concerned about a sexually transmitted disease. She states that her menstrual cycles have been normal. She has had a previous right ovarian cyst that has required surgery to remove her right ovary and right fallopian tube in the past. She still does have her appendix. She has had her gallbladder removed. She has had some nausea but no vomiting. One loose stool. - Related Data Allergies/Adverse Reactions: hydromorphone [From Dilaudid] Adverse Reaction (Verified 04/27/18 20:52) morphine [Morphine] Adverse Reaction (Verified 07/28/17 11:32) sumatriptan [From Imitrex] Adverse Reaction (Verified 07/28/17 11:32) sumatriptan succinate [From Imitrex] Adverse Reaction (Verified 07/28/17 11:32) Past Medical History - General Information source: Patient - Social History Smoking Status: Never Smoker Chew tobacco use (# tins/day): No Frequency of alcohol use: Rare Drug Abuse: None Family History: Reviewed & Not Pertinent, Other - Mother has kidney stones Patient has suicidal ideation: No Patient has homicidal ideation: No Neurological Medical History: Reports: Hx Migraine Endocrine Medical History: Reports: Hx Hypothyroidism - Maria Esther's Renal/ Medical History: Reports: Hx Ovarian Cysts. Denies: Hx Peritoneal Dialysis Psychiatric Medical History: Reports: Hx Anxiety, Hx Depression Past Surgical History: Reports: Hx Cholecystectomy, Hx Gynecologic Surgery - R ovarian and fallopian tubes removed - Immunizations Hx Diphtheria, Pertussis, Tetanus Vaccination: Yes Review of Systems - Review of Systems Constitutional: denies: Chills, Fever Cardiovascular: denies: Chest pain, Palpitations Respiratory: denies: Cough, Short of breath Gastrointestinal: Abdominal pain. denies: Diarrhea -: Yes All other systems reviewed and negative Physical Exam - Vital signs Vitals: Temp Pulse BP Pulse Ox 98.3 F 82 128/77 H 97 02/19/19 08:11 02/19/19 08:11 02/19/19 08:11 02/19/19 08:11 Interpretation: Normal - General General appearance: Appears well, Alert - HEENT Head: Normocephalic, Atraumatic Eyes: Normal Pupils: PERRL - Respiratory Respiratory status: No respiratory distress Chest status: Nontender Breath sounds: Normal Chest palpation: Normal - Cardiovascular Rhythm: Regular Heart sounds: Normal auscultation Murmur: No - Abdominal Inspection: Normal Distension: No distension Bowel sounds: Normal Tenderness: Tender - Mildly bilateral lower quadrants Organomegaly: No organomegaly - Back Back: Normal, Nontender - Extremities General upper extremity: Normal inspection, Nontender, Normal color, Normal ROM, Normal temperature General lower extremity: Normal inspection, Nontender, Normal color, Normal ROM, Normal temperature, Normal weight bearing. No: Jackeline's sign - Neurological Neuro grossly intact: Yes Cognition: Normal Orientation: AAOx4 [place] Coma Scale Eye Opening: Spontaneous Karie Coma Scale Verbal: Oriented Karie Coma Scale Motor: Obeys Commands [place] Coma Scale Total: 15 Speech: Normal Motor strength normal: LUE, RUE, LLE, RLE Sensory: Normal - Psychological Associated symptoms: Normal affect, Normal mood - Skin Skin Temperature: Warm Skin Moisture: Dry Skin Color: Normal Course - Re-evaluation Re-evalutation: 02/19/19 10:51 Patient presents with bilateral lower quadrant pain. She does not have any surgical abdominal signs. She is not . Laboratories are unremarkable. CT scan shows no evidence of significant pathology other than some suggestion that she may have chronic inflammatory bowel disease. I have discussed this with the patient and told her that she needs to follow-up with a gastroen terologist and may possibly need a colonoscopy. - Vital Signs Vital signs: Temp Pulse Resp BP Pulse Ox 98.3 F 82 128/77 H 97 02/19/19 08:11 02/19/19 08:11 02/19/19 08:11 02/19/19 08:11 - Laboratory Result Diagrams: 02/19/19 08:45 02/19/19 08:45 - Diagnostic Test Radiology reviewed: Image reviewed, Reports reviewed Discharge - Discharge Clinical Impression: Colitis Condition: Stable Disposition: HOME, SELF-CARE Instructions: Abdominal Pain ([facility]) Additional Instructions: Please call Dr. Worley as soon as possible to schedule follow up. Prescriptions: Ciprofloxacin HCl [Cipro 500 mg Tablet] 500 mg PO BID 5 Days #10 tablet Metronidazole [Flagyl 500 mg Tablet] 500 mg PO BID 5 Days #10 tablet Tramadol HCl [Ultram] 50 mg PO Q6 PRN 3 Days #12 tablet PRN Reason: Forms: Return to Work Referrals: SEAN MARKS MD [Primary Care Provider] - Follow up as needed CLARISSA WORLEY MD [ACTIVE STAFF] - Follow up in 3-5 days
[2019-02-19 11:14] VITALS: BP 122/77
== END 2019-02-19 11:15 | disposition home or self-care (01) ==
LOC: ER 08:06
DX: K52.9 Noninfective gastroenteritis and colitis, unspecified (principal); R10.30 Lower abdominal pain, unspecified; Z88.6 Allergy status to analgesic agent; Z90.49 Acquired absence of other specified parts of digestive tract
CPT/HCPCS: 36415; 83690; 85025; 80053; 81001; 74176; J1885; J2405; 96372; 96374; 99284

== ENCOUNTER 2019-02-25 08:23 | Emergency (ER) | payer OTHER ==
--- NOTE | 2019-02-25 09:55 | ER Document Report ---
ED GI/ - General Chief Complaint: Rectal Pain Stated Complaint: POSSIBLE HMERRHOIDS Time Seen by Provider: 02/25/19 09:25 Primary Care Provider: SEAN MARKS MD [Primary Care Provider] - Follow up as needed Notes: Patient is a 38-year-old female presents to the emergency department for potential hemorrhoids. Patient was seen at this facility on 02/19/2019 for abdominal pain and cramping. Inevitably diagnosed with a flareup of her IBS. Was started on Cipro and Flagyl. States she is been taking medications as prescribed. States she has actually been feeling better. States she has continued with intermittent diarrhea. States today she noticed that "my butt looked weird." States she does have a history of hemorrhoids and feels as though they may be "back." States she did call gastroenterology who told her to present to the emergency department for evaluation as they were unable to see the patient in the office. Patient voices that she also started her menstrual cycle this morning. She is unsure if she is having any rectal bleeding based on the fact that she did start her menstruation. Patient's denying any abdominal pain or nausea, denies any fevers. TRAVEL OUTSIDE OF THE [place] IN LAST 30 DAYS: No - Related Data Allergies/Adverse Reactions: hydromorphone [From Dilaudid] Adverse Reaction (Verified 04/27/18 20:52) morphine [Morphine] Adverse Reaction (Verified 07/28/17 11:32) sumatriptan [From Imitrex] Adverse Reaction (Verified 07/28/17 11:32) sumatriptan succinate [From Imitrex] Adverse Reaction (Verified 07/28/17 11:32) Home Medications: FLAGYL. FINISHED CIPRO. LEVOTHYROXINE. XANAX. ZOLOFT. PLAQUINAL Past Medical History - General Information source: Patient - Social History Smoking Status: Unknown if Ever Smoked Chew tobacco use (# tins/day): No Frequency of alcohol use: Rare Drug Abuse: None Family History: Reviewed & Not Pertinent, Other - Mother has kidney stones Patient has suicidal ideation: No Patient has homicidal ideation: No Neurological Medical History: Reports: Hx Migraine Endocrine Medical History: Reports: Hx Hypothyroidism - Maria Esther's Renal/ Medical History: Reports: Hx Ovarian Cysts. Denies: Hx Peritoneal Dialysis Psychiatric Medical History: Reports: Hx Anxiety, Hx Depression Past Surgical History: Reports: Hx Cholecystectomy, Hx Gynecologic Surgery - R ovarian and fallopian tubes removed - Immunizations Hx Diphtheria, Pertussis, Tetanus Vaccination: Yes Review of Systems - Review of Systems Constitutional: denies: Fever EENT: No symptoms reported Cardiovascular: No symptoms reported Respiratory: No symptoms reported Gastrointestinal: See HPI Genitourinary: No symptoms reported Female Genitourinary: See HPI Musculoskeletal: No symptoms reported Skin: No symptoms reported Hematologic/Lymphatic: No symptoms reported Neurological/Psychological: No symptoms reported Physical Exam - Vital signs Vitals: Temp Pulse Resp BP Pulse Ox 97.8 F 78 16 124/75 100 02/25/19 08:28 02/25/19 08:28 02/25/19 08:28 02/25/19 08:28 02/25/19 08:28 - Notes Notes: GENERAL: Alert, interacts well. No acute distress. HEAD: Normocephalic, atraumatic. EYES: Pupils equal, round, and reactive to light. Extraocular movements intact. ENT: Oral mucosa moist, tongue midline. NECK: Full range of motion. Supple. Trachea midline. LUNGS: Clear to auscultation bilaterally, no wheezes, rales, or rhonchi. No respiratory distress. HEART: Regular rate and rhythm. No murmur ABDOMEN: Soft, non-tender. Non-distended. Bowel sounds present in all 4 quadrants. EXTREMITIES: Moves all 4 extremities spontaneously. No edema, normal radial and dorsalis pedis pulses bilaterally. No cyanosis. BACK: no cervical, thoracic, lumbar midline tenderness. No saddle anesthesia, normal distal neurovascular exam. NEUROLOGICAL: Alert and oriented x3. Normal speech. cranial nerves II through XII grossly intact PSYCH: Normal affect, normal mood. SKIN: Warm, dry, normal turgor. No rashes or lesions noted. Rectal exam: [place] Stitcher Cj RN, external hemorrhoids x2 noted, nonthrombosed, no internal hemorrhoids noted, no obvious melena noted. Occult stool negative. Course - Re-evaluation Re-evalutation: 02/25/19 09:55 Discussed with patient diagnosis of hemorrhoids at bedside. Discussed symptomatic treatments. Discussed close follow-up with gastroenterology for scope. Repeat abdominal exam continues to reveal no pain. Patient stable for discharge. 02/25/19 09:58 Patient voices she does have diarrhea, states she does not want to take stool softeners based on the diarrhea. - Vital Signs Vital signs: Temp Pulse Resp BP Pulse Ox 97.8 F 78 16 124/75 100 02/25/19 08:28 02/25/19 08:28 02/25/19 08:28 02/25/19 08:28 02/25/19 08:28 Discharge - Discharge Clinical Impression: Hemorrhoids Qualifiers: Hemorrhoid type: unspecified Qualified Code(s): K64.9 - Unspecified hemorrhoids Condition: Stable Disposition: HOME, SELF-CARE Instructions: Hemorrhoids ([facility]), HC Hemorrhoid Cream ([facility]) Additional Instructions: As we discussed you have been seen and treated in the emergency department for hemorrhoids. Please make sure you are using sitz bath's. This is warm water with Epsom salt at least 3 times a day. You can also buy [id number] Preparation H. You can add stool softeners to your regimen although as we discussed you are still having diarrhea. Please follow-up with gastroenterology as soon as possible. Follow-up with your primary care provider in the next 12 to 24 hours. Return to the emergency room for any concerns. Prescriptions: Phenylephrine HCl/Witch Tamara [Preparation H Cooling Gel] 51 gm TP TID #1 gel..gm. Forms: Return to Work Referrals: SEAN MARKS MD [Primary Care Provider] - Follow up as needed MARNIE ESTRADA MD [ACTIVE STAFF] - Follow up as needed
[2019-02-25 10:14] VITALS: BP 127/81
== END 2019-02-25 10:13 | disposition home or self-care (01) ==
LOC: ER 08:23
DX: K64.4 Residual hemorrhoidal skin tags (principal); K58.0 Irritable bowel syndrome with diarrhea; E06.3 Autoimmune thyroiditis; F41.9 Anxiety disorder, unspecified; F32.9 Major depressive disorder, single episode, unspecified; Z79.899 Other long term (current) drug therapy
CPT/HCPCS: 99283